=== PATIENT | male | born 1960 | race Caucasian/White ===

== ENCOUNTER 2024-11-22 16:56 | Emergency (ER) | payer BC ==
--- OUTSIDE RECORDS SUMMARY | 2024-11-22 16:58 | XMS REPORT | Continuity of Care Document ---
Author Name Unknown Address [address] [place] [address] [facility] Address [address] [place] [address] Care Team Providers Care Cleat Maker Name Role Phone Nayeli Mascorro DO Primary Care Physician [phone] Jairo Rodriguez MD Attending Clinician [phone] JAIRO RODRIGUEZ Attending Clinician Unavail able Noe RN, Meliza Attending Clinician Unavailabl e Payers Payer Name Policy Type Policy Number Effective Date Expirati on Date Source [facility] COMM [id number] 2020 00:00:00 Problems Condition Name Condition Details Condition Category Status Onset Date Resolution Date Last Treatment Date Treating Clinician Comments Source Bilateral carpal tunnel syndrome Bilateral carpal tunnel syndrome Disease Active 04-03 00:00: 00 Grace Wilson Epic Allergies, Adverse Reactions, Alerts Allergy Name Allergy Type Status Severity Reaction(s) Onset Date Inactive Date Treating Clinician Comments Source ALLERGIE S NOT ON FILE SYSTEMIC Active MHEOUT ALLERGIE S NOT ON FILE SYSTEMIC Active MHEOUT Social History Social Habit Start Date Stop Date Quantity Comments Source Gender identity Cyrus rashaun Wilson Epic Sexual orientation [facility] [place] Epic Smoking Status Start Date Stop Date Source Tobacco smoking consumption [facility] Procedure Date / Time Performed Performing Clinicia n Source EMG 2024-04-03 17:42:34 Meliza Liu Epic [facility] Epic Encounters Start Date/Time End Date/Time Encounter Type Admission Type Attending Clinicians Care Facility Care Department Encounter ID Source 2024-04-03 15:45:00 2024-04-03 16:45:13 Procedure Visit Jairo Rodriguez [id number] [facility] 2024-04-03 15:23:30 2024-04-03 16:45:13 Outpatient [facility]JAIRO [facility] [id number] 7 [facility] 2024-03-11 00:00:00 2024-03-11 16:49:27 Orders Only Meliza Liu, Meliza Villa [id number] [facility] Notes Date/Time Note Provider Source Referral ID Status Reason Start Date Expiration Date Visits Re quested Visits Authorized [id number] Closed 03/11/2024 09/07/2024 [facility] Jairo Rodriguez MD - 04/03/2024 3:45 PM CDT Associated Order(s): EMG Pre-Procedure Diagnose(s): Right carpal tunnel syndrome; Carpal tunnel syndrome of left wrist Patient ID: Mahendra Dhaliwal is a 64 y.o. male. EMG Date/Time: 04/03/2024 5:42 PM Performed by: Jairo Rodriguez MD Authorized by: Sheldon Oconnor MD Indications: Indications: Hand pain, carpal tunnel Procedure specific details: Nerve conduction study of bilateral upper extremities Motor studies The right ulnar nerve demonstrates normal latency at 3.2 ms, normal amplitude at 5.5 mV at the wrist and 5 mV above the elbow. Conduction velocity is normal at 50.5 m/s. The left ulnar nerve demonstrates normal latency at 3 ms, normal amplitude at 5.9 mV at the wrist and 5.7 mV above the elbow. Conduction velocity is normal at 53.7 m/s. The right median nerve demonstrates prolonged latency at 5.6 ms, depressed amplitude at 1 mV and decreased conduction velocity at 44.5 m/s. The left median nerve demonstrates prolonged latency at 5.5 ms, depressed amplitude at 3.5 mV and decreased conduction velocity at 43.1 m/s. Sensory studies The right ulnar nerve demonstrates normal latency at 2.8 ms, depressed amplitude at 8 ?V and normal conduction velocity at 60.5 m/s. The left ulnar nerve demonstrates normal latency at 2.8 ms, depressed amplitude at 9.3 ?V and normal conduction velocity at 59.2 m/s. The right median nerve demonstrates prolonged latency at 4 ms, depressed amplitude at 6.3 ?V and decreased conduction velocity at 45 m/s. The left median nerve demonstrates prolonged latency at 4.1 ms, depressed amplitude at 7.3 ?V and decreased conduction velocity at 49.1 m/s. Interpretation Abnormal study of bilateral median nerves, prolonged latencies, depressed amplitudes and velocities. The above is consistent with moderate bilateral carpal tunnel syndrome right greater than left Electromyogram of bilateral upper extremities Right upper extremity In the deltoid, bicep, tricep, extensor digitorum communis and first dorsal interosseous insertional activity was normal. There was no abnormal resting activity. Voluntary contraction demonstrated normal recruitment and a full interference pattern. Motor unit size and duration was normal. In the APB insertional activity was normal. There was no abnormal resting activity. Voluntary contraction demonstrated limited recruitment and a reduced interference pattern. Motor units size and duration was normal. Left upper extremity In the deltoid, bicep, tricep, extensor digitorum communis, APB and first dorsal interosseous insertional activity was normal. There was no abnormal resting activity. Voluntary contraction demonstrated normal recruitment and a full interference pattern. Motor unit size and duration was normal. Interpretation Chronic neurogenic changes in the right APB consistent with a clinical diagnosis of carpal tunnel syndrome on the right. [id number] 17:49:51 [id number] 17:49:51 Diagnosis Bilateral carpal tunnel syndrome - Primary Carpal tunnel syndrome [id number] 17:49:51 [id number] 16:49:36Scheduled Orders [id number] 16:49:36 Diagnosis Right carpal tunnel syndrome Carpal tunnel syndrome Carpal tunnel syndrome of le ft wrist [facility]3154-12-18 16:49:36* (Routine) - Incomplete Specialty Diagnoses / Procedures Referred By Contac t Referred To Contact Diagnoses Right carpal tunnel syndrome Carpal tunnel syndrome of left wrist Procedures EMG Sheldon Oconnor MD [facility] [address] [place] [address] Referral ID Status Reason Start Date Expiration Date V isits Requested Visits Authorized [id number] Incomplete 03/11/2024 09/07/2024 1 1 [facility]
[2024-11-22] MEDS ORDERED: NITROGLYCERIN 0.4 MG/TAB SL ONE (17:20)
[2024-11-22] MEDS ORDERED: ASPIRIN 81 MG CHEWABLE TABLET ONE (17:20)
[2024-11-22 17:31] LABS: Absolute Basophils 0.1 K/uL (0-0.5); Absolute Eosinophils 0.4 K/uL (0-0.5); Absolute Lymphocytes (CBC) 2.8 K/uL (0.7-4.9); Absolute Monocytes 1.2 K/uL (0.1-1.3); Absolute Neutrophil 6.5 K/uL (1.8-8.0); Basophils % 0.5 % (0-1.3); Eosinophils % 3.4 % (0-4.4); Hematocrit 48.1 % (39.6-49.0); Lymphocytes % 25.8 % (15.3-44.8); MCH 30.5 pg (27.0-35.0); MCHC 33.2 g/dL (32.0-36.0); MCV 91.9 fL (80-100); MPV 7.6 fL (7.6-11.3); Neutrophils % 59.3 % (41.7-73.7); Platelets 287 thou/uL (152-406); RBC Red Blood Cell Count 5.23 M/uL (4.33-5.43); Red Cell Distribution Width 14.1 % (12.1-15.2)
[2024-11-22] MEDS ORDERED: HEPARIN/D5W 25,000 UNIT/500 ML BAG IV ONE (17:31)
[2024-11-22] MEDS ORDERED: HEPARIN 5000 UNIT/ML 1 ML VIAL ONE (17:32)
--- NOTE | 2024-11-22 17:32 | ER ---
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 PT STATES THAT THE PAIN STARTED WHEN HE WAS SWEEPING. Coronavirus screen: Client denies travel out of the [place] in the last 14 days. Ebola Screen: Patient denies travel to an Ebola-affected area in the 21 days before illness onset. Initial Sepsis Screen: Does the patient meet any 2 criteria? No. Patient's initial sepsis screen is negative. Does the patient have a suspected source of infection? No. Patient's initial sepsis screen is negative. Risk Assessment: Do you want to hurt yourself or someone else? Patient reports no desire to harm self or others. Onset of symptoms was November 22, 2024. 17:09 Method Of Arrival: Ambulatory cm10 17:09 Acuity: SHADY 2 cm10 Triage Assessment: 17:11 General: Appears uncomfortable, Behavior is calm, cooperative. Pain: Complains of pain cm10 in chest Pain radiates to right arm and left arm Pain currently is 8 out of 10 on a pain scale. Quality of pain is described as TIGHTNESS Is intermittent. Neuro: No deficits noted. Level of Consciousness is awake, alert, obeys commands, Oriented to person, place, time, situation, Appropriate for age. Respiratory: No deficits noted. Airway is patent Respiratory effort is even, unlabored, Respiratory pattern is regular, symmetrical. Historical: - Allergies: 17:10 NKA; cm10 - PMHx: 17:10 Anxiety; Depression; skin cancer; cm10 - Immunization history:: Adult Immunizations up to date. - Infectious Disease History:: Denies. - Social history:: Smoking status: Patient reports the use of cigarette tobacco products, smokes one-half pack cigarettes per day. Screenin:[facility] ED Fall Risk Assessment (Adult) History of falling in the last 3 months, bp including since admission No falls in past 3 months (0 pts) Confusion or Disorientation No (0 pts) Intoxicated or Sedated No (0 pts) Impaired Gait No (0 pts) Mobility Assist Device Used No (0 pt) Altered Elimination No (0 pt) Score/Fall Risk Level 0 - 2 = Low Risk Oriented to surroundings. Abuse screen: Denies threats or abuse. Denies injuries from another. Nutritional screening: No deficits noted. Tuberculosis screening: No symptoms or risk factors identified. Assessment: 17:24 General: Appears in no apparent distress. Behavior is calm, cooperative. Pain: iw Complains of pain in chest Pain does not radiate. Quality of pain is described as tightness Pain began 2 hours ago. 17:45 Reassessment: Patient appears in no apparent distress at this time. Patient and/or iw family updated on plan of care and expected duration. Pain level reassessed. Patient states feeling better. Cardiovascular: Capillary refill < 3 seconds in bilateral fingers Patient's skin is warm and dry. Rhythm is regular. 18:02 Reassessment: pt crying, anxious about transfer, verbal encouragement given , family at bedside. 18:46 Reassessment: Patient appears in no apparent distress at this time. Patient and/or iw family updated on plan of care and expected duration. Pain level reassessed. Patient is alert, oriented x 3, equal unlabored respirations, skin warm/dry/pink. Patient denies pain at this time. Patient states feeling better. 19:06 Reassessment: attempt to call report to [facility], spoke with LOLA Wells , will call iw back with a bed assignment. 19:44 Reassessment: Patient appears in no apparent distress at this time. Patient and/or bm8 family updated on plan of care and expected duration. Pain level reassessed. Patient is alert, oriented x 3, equal unlabored respirations, skin warm/dry/pink. pt able to ambulate to restroom. report given to LOLA campbell at [facility] Patient denies pain at this time. Patient states feeling better. 20:22 Reassessment: Patient appears in no apparent distress at this time. Patient and/or bm8 family updated on plan of care and expected duration. Pain level reassessed. Patient is alert, oriented x 3, equal unlabored respirations, skin warm/dry/pink. Patient denies pain at this time. Patient states feeling better. Patient states symptoms have improved. Vital Signs: 17:09 BP 145 / 96; Pulse 86; Resp 15; Temp 98(O); Pulse Ox 96% on R/A; Weight 65.77 kg; cm10 Height 5 ft. 4 in. ; Pain 8/10; 17:30 BP 130 / 88; Pulse 81; Resp 13; Pulse Ox 96% ; bp 18:10 BP 131 / 99; Pulse 86; Resp 16; Pulse Ox 99% ; bp 20:22 BP 124 / 96; Pulse 67; Resp 18; Temp 98; Pulse Ox 96% ; Pain 0/10; bm8 17:09 Body Mass Index 24.89 (65.77 kg, 162.56 cm) cm10 17:09 Pain Scale: Adult cm10 20:22 Pain Scale: Adult bm8 [facility] Coma Score: 20:22 Eye Response: spontaneous(4). Motor Response: obeys commands(6). Verbal Response: bm8 oriented(5). Total: 15. ED Course: 16:58 Patient arrived in ED. sj2 17:00 Durga Beth PA is PHCP. cp 17:00 Erinn Cuello MD is Attending Physician. cp 17:08 Arm band placed on right wrist. Patient placed in waiting room. EKG completed in cm10 triage. Results shown to MD. 17:09 EKG done, by ED staff, reviewed by Durga DUFFY. cm10 17:10 Triage completed. cm10 17:23 Zunilda Bond, RN is Primary Nurse. iw 17:24 Inserted saline lock: 20 gauge in left antecubital area, using aseptic technique. Blood iw collected. Flushed with 10 mL NS. Inserted saline lock: 20 gauge in right antecubital area, using aseptic technique. Blood collected. Flushed with 10 mL NS. Patient maintains SpO2 saturation greater than 95% on room air. 17:30 Patient has correct armband on for positive identification. Client placed on continuous bp cardiac and pulse oximetry monitoring. NIBP monitoring applied. computer systems support specialist on. Pulse ox on. NIBP on. 17:30 Oxygen administration via nasal cannula \T\ 2L/min. bp 17:35 called transfer center at [facility] talked to Mignon. sp 17:37 XRAY Chest (1 view) In Process Unspecified. EDMS 17:47 called Steve talked to Tiffanie. sp 18:39 CT Chest For PE Angio In Process Unspecified. EDMS 20:22 Provided Education on: need for transfer. bm8 20:22 No provider procedures requiring assistance completed. Patient transferred, IV remains bm8 in place. Administered Medications: 17:18 CANCELLED (Physician Discretion): nitroglycerin0.4 mg Sublingual once cp 17:24 Drug: Aspirin PO Chewable Tablet 324 mg PO once; 81 mg tablets x 4 Route: PO; iw 18:56 Follow up: Response: No adverse reaction iw 17:24 Drug: Nitroglycerin Sublingual 0.4 mg Sublingual once; every five minute if needed x3 iw Route: Sublingual; 18:56 Follow up: Response: No adverse reaction; Pain is decreased iw 17:38 Drug: Heparin (PR-Bolus No thrombolytic) - HEParin IVP 60 units/kg IVP once; Max 5000 iw units {Co-Signature: bp (Horacio Chance RN).} {Note: rounded to 4000 units .} Route: IVP; Site: left antecubital; 18:56 Follow up: Response: No adverse reaction iw 17:42 Drug: Heparin (PR Drip) 12 units/kg/[place] - ([place] [address] units, D5W IV 500 ml) IV at iw calculated rate Per protocol; Max initial rate 1000 units/hr {Co-Signature: bp (Horacio Chance RN).} Route: IV; Rate: calculated rate; Site: left antecubital; 20:23 Follow up: Response: No adverse reaction; IV Status: Infusion continued upon transfer bm8 18:56 Not Given (Patient Refused): ondansetron 4 mg IVP once; over 2 minutes iw Medication: 17:24 VIS not applicable for this client. iw Outcome: 17:31 ER care complete, transfer ordered by . zachery 20:22 Transferred by ground EMS to [facility], Transfer form completed. X-rays sent bm8 w/ patient. 20:22 Condition: stable 20:22 Instructed on follow up and referral plans. the need for transfer, Demonstrated understanding of instructions, follow-up care, medications, 20:24 Patient left the ED. bm8 Signatures: Dispatcher [employer] EDMS Kimberly Irby Irene RN RN iw Durga Beth PA PA cp Peltier, Brian, RN RN bp Akiko Ennis RN RN cm10 Shashi Garrison RN RN bm8 Marcelo Rodriguez2 Horacio Chance RN bp
--- NOTE | 2024-11-22 17:32 | EDPHYS ---
Physician Documentation [facility] Name: Mahendra Alvarado Age: 64 yrs Sex: Male : 1960 Arrival Date: 11/22/2024 Time: 16:56 Bed 2 Private MD: ED Physician Erinn Cuello HPI: 11/22 17:10 This 64 yrs old Male presents to ER via Ambulatory with complaints of Chest Pain. cp 17:10 The patient or guardian reports chest pain that is located primarily in the substernal cp area, anterior chest wall, bilaterally. 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 The pain radiates to both arms, Associated signs and symptoms: Pertinent positives: dizziness, nausea, shortness of breath, Pertinent negatives: abdominal pain, cough, lower extremity pain, lower extremity swelling, syncope, vomiting. The chest pain is described as aching, a pressure, constant. Duration: The patient or guardian reports a single episode, that is still ongoing, and worsening. Historical: - Allergies: 17:10 NKA; cm10 - PMHx: 17:10 Anxiety; Depression; skin cancer; cm10 - Immunization history:: Adult Immunizations up to date. - Infectious Disease History:: Denies. - Social history:: Smoking status: Patient reports the use of cigarette tobacco products, smokes one-half pack cigarettes per day. ROS: 17:15 Constitutional: Negative for body aches, chills, fever, poor PO intake, cp 17:15 Cardiovascular: Positive for chest pain, cp 17:15 Respiratory: Positive for shortness of breath, Negative for cough, wheezing, 17:15 Abdomen/GI: Negative for abdominal pain, vomiting, diarrhea, constipation, 17:15 Eyes: Positive for blurry vision, cp 17:15 ENT: Negative for drainage from ear(s), ear pain, sore throat, difficulty swallowing, difficulty handling secretions, 17:15 Neuro: Positive for dizziness, Negative for altered mental status, numbness, syncope, near syncope, weakness, 17:15 All other systems are negative, Exam: 17:20 Constitutional: The patient appears in no acute distress, alert, awake, non-toxic, well cp developed, well nourished, diaphoretic, 17:20 Head/Face: Normocephalic, atraumatic. cp 17:20 Eyes: Periorbital structures: appear normal, Conjunctiva: normal, no exudate, no injection, Sclera: no appreciated abnormality, Lids and lashes: appear normal, bilaterally, 17:20 ENT: External ear(s): are unremarkable, Nose: is normal, Mouth: Lips: moist, Oral mucosa: moist, Posterior pharynx: Airway: no evidence of obstruction, patent, 17:20 Chest/axilla: Inspection: normal, 17:20 Cardiovascular: Rate: normal, Rhythm: regular, Edema: is not appreciated, JVD: is not appreciated, 17:20 Respiratory: the patient does not display signs of respiratory distress, Respirations: shallow respirations, that is mild, Breath sounds: are clear throughout, no decreased breath sounds, no stridor, no wheezing, 17:20 Abdomen/GI: Inspection: abdomen appears normal, Palpation: abdomen is soft and non-tender, in all quadrants, 17:20 Neuro: Orientation: to person, place \T\ time. Mentation: is normal, Motor: moves all fours, strength is normal, Sensation: no obvious gross deficits, Vital Signs: 17:09 BP 145 / 96; Pulse 86; Resp 15; Temp 98(O); Pulse Ox 96% on R/A; Weight 65.77 kg; cm10 Height 5 ft. 4 in. ; Pain 8/10; 17:30 BP 130 / 88; Pulse 81; Resp 13; Pulse Ox 96% ; bp 18:10 BP 131 / 99; Pulse 86; Resp 16; Pulse Ox 99% ; bp 20:22 BP 124 / 96; Pulse 67; Resp 18; Temp 98; Pulse Ox 96% ; Pain 0/10; bm8 17:09 Body Mass Index 24.89 (65.77 kg, 162.56 cm) cm10 17:09 Pain Scale: Adult cm10 20:22 Pain Scale: Adult bm8 Ramin Coma Score: 20:22 Eye Response: spontaneous(4). Motor Response: obeys commands(6). Verbal Response: bm8 oriented(5). Total: 15. MDM: 17:30 Differential diagnosis: acute myocardial infarction, pericarditis, pleurisy, pneumonia, cp pneumothorax, pulmonary embolus, stable angina, unstable angina. 17:31 Medical Screening Exam initiated cp 18:00 Data reviewed: vital signs, nurses notes, old medical records, previous EKG lab test cp result(s), EKG, radiologic studies, plain films, I have discussed the patient's presentation/case with the attending Emergency Department Physician; and as a result, I will transfer patient, start heparin drip. 18:00 The patient was given aspirin in the Emergency Department. I considered the following cp discharge prescriptions or medication management in the emergency department Medications were administered in the Emergency Department. See MAR. Counseling: I had a detailed discussion with the patient and/or guardian regarding the historical points, exam findings, and any diagnostic results supporting the discharge/admit diagnosis, lab results, radiology results, the need to transfer to another facility, for higher level of care. Response to treatment: the patient's symptoms have markedly improved after treatment. 19:30 Management of patient was discussed with the following: elevator conductor, DR Nolen, will cp accept after discussion to [facility]. 11/22 17:09 Order name: Basic Metabolic Panel; Complete Time: 17:59 11/22 17:59 Interpretation: Normal except: CL 109. 11/22 17:09 Order name: CBC with Diff; Complete Time: 17:59 cp 11/22 17:09 Order name: D-Dimer; Complete Time: 17:59 cp 11/22 17:09 Order name: LFT's; Complete Time: 17:59 cp 11/22 17:09 Order name: Magnesium; Complete Time: 17:59 cp 11/22 17:09 Order name: NT PRO-BNP; Complete Time: 17:59 cp 11/22 17:09 Order name: PT-INR; Complete Time: 17:59 cp 11/22 17:09 Order name: Troponin HS; Complete Time: 17:59 cp 11/22 17:09 Order name: XRAY Chest (1 view); Complete Time: 19:00 cp 11/22 19:00 Interpretation: Report review. 11/22 18:00 Order name: CT Chest For PE Angio; Complete Time: 19:00 cp 11/22 17:09 Order name: Cardiac monitoring; Complete Time: 17:23 cp 11/22 17:09 Order name: EKG - Nurse/Tech; Complete Time: 17:12 cp 11/22 17:09 Order name: IV Saline Lock; Complete Time: 17:23 cp 11/22 17:09 Order name: Labs collected and sent; Complete Time: 17:23 cp 11/22 17:09 Order name: O2 Per Protocol; Complete Time: 17:23 cp 11/22 17:09 Order name: O2 Sat Monitoring; Complete Time: 17:23 cp Administered Medications: 17:18 CANCELLED (Physician Discretion): nitroglycerin0.4 mg Sublingual once cp 17:24 Drug: Aspirin PO Chewable Tablet 324 mg PO once; 81 mg tablets x 4 Route: PO; iw 18:56 Follow up: Response: No adverse reaction iw 17:24 Drug: Nitroglycerin Sublingual 0.4 mg Sublingual once; every five minute if needed x3 iw Route: Sublingual; 18:56 Follow up: Response: No adverse reaction; Pain is decreased iw 17:38 Drug: Heparin (GA-Bolus No thrombolytic) - HEParin IVP 60 units/kg IVP once; Max 5000 iw units {Co-Signature: bp (Horacio Chance RN).} {Note: rounded to 4000 units .} Route: IVP; Site: left antecubital; 18:56 Follow up: Response: No adverse reaction iw 17:42 Drug: Heparin (GA Drip) 12 units/kg/[place] - ([place] [address] units, D5W IV 500 ml) IV at iw calculated rate Per protocol; Max initial rate 1000 units/hr {Co-Signature: bp (Horacio Chance RN).} Route: IV; Rate: calculated rate; Site: left antecubital; 20:23 Follow up: Response: No adverse reaction; IV Status: Infusion continued upon transfer bm8 18:56 Not Given (Patient Refused): ondansetron 4 mg IVP once; over 2 minutes iw Disposition: 18:50 Critical Care:. cp Disposition Summary: 11/22/24 17:31 Transfer Ordered Notes: Reason: Higher level of care cp Condition: Fair cp Problem: new cp Symptoms: have improved cp Transfer Location: [facility](11/22/24 18:50) cp Accepting Physician: DR Nolen(11/22/24 20:24) bm8 Diagnosis - Unstable angina cp - Posterior Wall GA cp - Elevated blood-pressure reading, without diagnosis of hypertension cp Forms: - Medication Reconciliation Form cp - SBAR form cp Critical care time excluding procedures: 18:50 Critical care time: Bedside Care: 7 minutes, Consultation: 30 minutes, Family cp Intervention: 5 minutes. Total time: 42 minutes Signatures: Dispatcher [employer] EDMS Zunilda Bond, RN RN iw Durga Beth PA PA Akiko Edouard, RN RN cm10 Shashi Garrison, RN RN bm8 Horacio Chance RN bp Corrections: (The following items were deleted from the chart) 17:09 17:09 BASIC METABOLIC PANEL+C.LAB.BRZ ordered. EDMS EDMS 17:09 17:09 CBC+H.LAB.BRZ ordered. EDMS EDMS 17:09 17:09 D-DIMER+COAG.LAB.BRZ ordered. EDMS EDMS 17:09 17:09 HEPATIC FUNCTION+C.LAB.BRZ ordered. EDMS EDMS 17:09 17:09 MAGNESIUM+C.LAB.BRZ ordered. EDMS EDMS 17:09 17:09 PROBNP+C.LAB.BRZ ordered. EDMS EDMS 17:09 17:09 PROTIME (+INR)+COAG.LAB.BRZ ordered. EDMS EDMS 17:09 17:09 Troponin High Sensitivity+C.LAB.BRZ ordered. EDMS EDMS 17:09 17:09 Chest Single View+RAD.RAD.BRZ ordered. EDMS EDMS 17:18 17:15 Nitroglycerin Sublingual 0.4 mg Sublingual once ordered. cp cp 18:50 17:31 doctor cp cp 18:50 17:31 Other Acute Care Facility cp cp 20:24 18:50 DR Callum bingham bm8 11/23 19:37 11/22 20:25 Management of patient was discussed with the following: elevator conductor, DR zachery Nolen, will accept after discussion to [facility]. cp
[2024-11-22 17:43] LABS: D-Dimer 0.8 FEUug/mL (0-0.500); PT Prothrombin Time 13.1 SECONDS (10-13.0); Protime INR 1.16
[2024-11-22] MEDS ORDERED: ONDANSETRON 4 MG/2 ML VIAL ONE (17:44)
[2024-11-22] MEDS ORDERED: ACETAMINOPHEN 500 MG TAB ONE (17:44)
[2024-11-22 17:53] LABS: Albumin 3.7 g/dL (3.4-5.0); Albumin/Globulin Ratio 0.9 (1.1-1.8); Anion Gap 9.7 mEq/L (5.0-15.0); Bilirubin Direct 0.2 mg/dL (0-0.2); Bilirubin Indirect, Calculated 0.3 mg/dL (0.2-0.8); Bilirubin Total 0.5 mg/dL (0.2-1.0); Magnesium 2.3 mg/dL (1.6-2.4); Potassium 3.7 mEq/L (3.5-5.1); Protein, Total 7.7 g/dL (6.4-8.2)
[2024-11-22 17:57] LABS: Troponin High Sensitivity 442.2 pg/mL (<58.9)
--- NOTE | 2024-11-22 18:12 | RAD REPORT ---
EXAMINATION: ONE VIEW CHEST XR CLINICAL INDICATION: Male, 64 years old.,CHEST PAIN TECHNIQUE: Frontal chest projection is submitted. Examination is limited by patient positioning and t echnique. COMPARISON: 06/19/2024 FINDINGS: The lungs are well inflated and clear. No pneumothorax or sizable effusion. The heart is normal in s ize. Mediastinal contours are unremarkable. IMPRESSION: No acute intrathoracic abnormalities.
--- NOTE | 2024-11-22 18:53 | RAD REPORT ---
EXAM: CT Chest For Pe Angio TECHNIQUE: CT angiogram of the chest was performed following intravenous contrast administration, inc luding sagittal and coronal as well as maximum intensity projection reformats. One or more of the following dose reduction techniques were used: Automated exposure control, adjustment of the mA and k V according to patient size, and iterative reconstruction. Unless otherwise specified, incidental findings do not require dedicated imaging follow-up. INDICATION: CHEST PAIN COMPARISON: Chest radiograph of the same day. FINDINGS: LINES/TUBES: None. PULMONARY ARTERIES: Main pulmonary arteries are normal in caliber. No filling defects within the pul monary arteries to suggest pulmonary embolus. LUNGS AND AIRWAYS: The lungs and central airways are normal without focal abnormality. PLEURA: No effusion or pneumothorax. HEART AND MEDIASTINUM: The visualized thyroid gland is normal. No mediastinal, hilar, or axillary lym phadenopathy. Heart is unremarkable. No pericardial effusion. SOFT TISSUES AND BONES: No acute osseous abnormality. No significant soft tissue finding. UPPER ABDOMEN: Unremarkable. IMPRESSION: No evidence of acute central pulmonary emboli. No suspicious intrathoracic findings..
[2024-11-22 20:48] VITALS: TEMP 98
[2024-11-22 20:52] VITALS: BP 124/96; O2SAT 96
--- NOTE | 2024-11-24 11:22 | EKG ---
Test Date: 2024-11-22 Test Time: 17:05:33 Entry Level Account Representative: DANIELA MEASUREMENT RESULTS: Intervals: Rate: 76 WV: 144 QRSD: 142 QT: 406 QTc: 456 [place]: P: 37 W[place]: 144 QRS: 60 T: 42 INTERPRETIVE STATEMENTS: Normal sinus rhythm Right bundle branch block Abnormal ECG Compared to ECG 04/04/2017 09:44:19 No significant changes Electronically Signed On 11-24-24 11:18:37 CDT by Tyrone Cervantes
--- NOTE | 2024-11-24 11:22 | EKG ---
Test Date: 2024-11-22 Test Time: 18:10:38 [employer]: TIGRE MEASUREMENT RESULTS: Intervals: Rate: 75 [place]: 138 QRSD: 148 QT: 410 QTc: 457 [place]: P: 27 FL: 138 QRS: 63 T: 54 INTERPRETIVE STATEMENTS: Normal sinus rhythm Right bundle branch block Abnormal ECG Compared to ECG 11/22/2024 17:19:57 No significant changes Electronically Signed On 11-24-24 11:18:24 CDT by Tyrone Cervantes
--- NOTE | 2024-11-24 11:22 | EKG ---
Test Date: 2024-11-22 Test Time: 17:19:57 Inter Com Servicer: DANIELA MEASUREMENT RESULTS: Intervals: Rate: 75 [place]: 154 QRSD: 142 QT: 408 QTc: 455 [place]: P: 16 [place]: 154 QRS: 68 T: 52 INTERPRETIVE STATEMENTS: Normal sinus rhythm Right bundle branch block Abnormal ECG Compared to ECG 11/22/2024 17:05:33 No significant changes Electronically Signed On 11-24-24 11:18:29 CDT by Tyrone Cervantes
== END 2024-11-22 20:24 | disposition short-term general hospital (02) ==
LOC: ER 16:56
DX: I21.29 ST elevation (STEMI) myocardial infarction involving other sites (principal); R03.0 Elevated blood-pressure reading, without diagnosis of hypertension; F17.210 Nicotine dependence, cigarettes, uncomplicated
CPT/HCPCS: 85025; 80048; 36415; 83735; 85610; 85379; 80076; 84484; 83880; 71275; 71045; Q9967; J1644; J2405; 93005; 96365; 96366; 99285